=== PATIENT | male | born 1940 | race Caucasian/White ===

== ENCOUNTER 2024-04-29 17:06 | Inpatient (IN) | payer MEDICARE ==
[~2024-04-29] VITALS: Ht 180.3 cm; Wt 83.4 kg
[2024-04-29 17:42] LABS: BASOPHILS # (AUTO) 0.1 X10'3 (0-0.2); BASOPHILS % (AUTO) 1.4 % (0-1); EOSINOPHILS # (AUTO) 0.7 X10'3 (0-0.9); EOSINOPHILS % (AUTO) 8.9 % (0-6); HEMATOCRIT 45.3 % (42.0-52.0); HEMOGLOBIN 15.2 g/dl (14.0-17.9); LYMPHOCYTES # (AUTO) 2.7 X10'3 (1.1-4.8); LYMPHOCYTES % (AUTO) 32.3 % (21-51); MEAN CORPUSCULAR HEMOGLOBIN 31.3 PG (27.0-31.0); MEAN CORPUSCULAR HGB CONC 33.5 g/dL (33.0-36.5); MEAN CORPUSCULAR VOLUME 93.4 FL (78-98); MONOCYTES # (AUTO) 1.1 X10'3 (0-0.9); MONOCYTES % (AUTO) 13.8 % (2-12); NEUTROPHILS # (AUTO) 3.6 X10'3 (1.8-7.7); NEUTROPHILS % (AUTO) 43.6 % (42-75); PLATELET COUNT 240 X10'3 (140-440); RED BLOOD COUNT 4.85 X10'6 (4.70-6.10); RED CELL DISTRIBUTION WIDTH 15.1 % (11.5-14.5); WHITE BLOOD COUNT 8.3 X10'3 (4.5-11.0)
[2024-04-29 18:18] LABS: ALANINE AMINOTRANSFERASE 19 U/L (12-78); ALBUMIN 3.6 G/DL (3.4-5.0); ALBUMIN/GLOBULIN RATIO 0.8 (1.1-1.5); ALKALINE PHOSPHATASE 64 IU/L (46-116); ANION GAP 6 (8-16); ASPARTATE AMINO TRANSFERASE 15 U/L (10-37); BILIRUBIN,TOTAL 0.5 MG/DL (0.1-1.0); BLOOD UREA NITROGEN 17 MG/DL (7-18); BUN/CREATININE RATIO 18.9 (10.0-20.0); CALCIUM 8.9 MG/DL (8.5-10.1); CHLORIDE 101 MMOL/L (99-107); GLUCOSE 119 MG/DL (70-104); POTASSIUM 4.3 MMOL/L (3.5-5.1); SODIUM 136 MMOL/L (135-145); TOTAL CARBON DIOXIDE 29.1 MMOL/L (24-32); TOTAL PROTEIN 7.9 G/DL (6.4-8.2); eCRCL 66 ML/MIN; eGFR 81 ML/MIN
[2024-04-29 18:25] LABS: PRO BRAIN NATRIURETIC PEPTIDE 333 PG/ML (0-450)
[2024-04-29] MEDS: normal saline 1000ml 1,000 ML IV ONE (19:20)
[2024-04-29 20:04] LABS: BILIRUBIN,URINE NEGATIVE (Neg); CLARITY,URINE CLEAR (Clear); COLOR,URINE YELLOW (Yellow); GLUCOSE, URINE NEGATIVE (Neg); KETONES,URINE NEGATIVE (Neg); LEUKOCYTE ESTERASE ,URINE NEGATIVE (Neg); NITRITES, URINE NEGATIVE (Neg); OCCULT BLOOD,URINE TRACE-INTACT (Neg); PROTEIN,URINE 30 mg/dl (Neg); UROBILINOGEN,URINE 0.2 E.U/dL (0.2-1.0)
[2024-04-29 20:23] LABS: UA COLLECTION TYPE VOIDED
[2024-04-29 20:26] LABS: BACTERIA,URINE FEW /HPF (Neg); MUCUS STRANDS MODERATE /LPF (Neg); RBC,URINE NONE SEEN /HPF (0-2); SQUAMOUS EPITHELIAL CELL,UR FEW /LPF (FEW); WBC,URINE 0-4 /HPF (0-4)
[2024-04-29] MEDS ORDERED: ondansetron/PF 4mg/2ml inj IV PRN (22:30)
[2024-04-29] MEDS ORDERED: potassium Cl 20 mEq SR tablet PO PRN ×2 (22:30)
[2024-04-29] MEDS ORDERED: acetaminophen 325mg tablet PO PRN (22:30)
[2024-04-29] MEDS ORDERED: magnesium sulf-water 4G/100mL 100 ML IV PRN (22:30)
[2024-04-29] MEDS ORDERED: magnesium sulf-water 2g/50mL 50 ML IV PRN (22:30)
[2024-04-29] MEDS ORDERED: potassium Cl 40MEQ/1/2NS 520ml 520 ML IV PRN (22:30)
[2024-04-29] MEDS ORDERED: magnesium Cl slow-release 64mg tablet PO PRN (22:30)
[2024-04-30] VITALS (9 sets, daily range): BP systolic 116–151; BP diastolic 53–86; PULSE 66–83; RESP 12–19; TEMP 98–98.7; O2SAT 96–99
[2024-04-30] MEDS ORDERED: NO HOME MEDS (00:20)
[2024-04-30 03:09] LABS: EOSINOPHILS # (AUTO) 0.6 X10'3 (0-0.9); HEMOGLOBIN 13.9 g/dl (14.0-17.9); NEUTROPHILS # (AUTO) 3.9 X10'3 (1.8-7.7)
[2024-04-30 03:12] LABS: BASOPHILS # (AUTO) 0.1 X10'3 (0-0.2); BASOPHILS % (AUTO) 1.3 % (0-1); EOSINOPHILS % (AUTO) 7.7 % (0-6); HEMATOCRIT 41.8 % (42.0-52.0); LYMPHOCYTES # (AUTO) 2.3 X10'3 (1.1-4.8); LYMPHOCYTES % (AUTO) 28.8 % (21-51); MEAN CORPUSCULAR HGB CONC 33.2 g/dL (33.0-36.5); MEAN CORPUSCULAR VOLUME 93.5 FL (78-98); MEAN PLATELET VOLUME 9.1 FL (7.4-10.4); MONOCYTES # (AUTO) 0.9 X10'3 (0-0.9); MONOCYTES % (AUTO) 11.9 % (2-12); NEUTROPHILS % (AUTO) 50.3 % (42-75); PLATELET COUNT 228 X10'3 (140-440); RED BLOOD COUNT 4.47 X10'6 (4.70-6.10); RED CELL DISTRIBUTION WIDTH 14.8 % (11.5-14.5); WHITE BLOOD COUNT 7.8 X10'3 (4.5-11.0)
[2024-04-30 03:32] LABS: ALBUMIN 3.2 G/DL (3.4-5.0); BLOOD UREA NITROGEN 15 MG/DL (7-18); BUN/CREATININE RATIO 17.2 (10.0-20.0); CALCIUM 8.5 MG/DL (8.5-10.1); CREATININE 0.87 MG/DL (0.60-1.10); GLUCOSE 116 MG/DL (70-104); SODIUM 137 MMOL/L (135-145); TOTAL CARBON DIOXIDE 24.9 MMOL/L (24-32); eCRCL 69 ML/MIN; eGFR 84 ML/MIN
[2024-04-30 03:33] LABS: ANION GAP 8 (8-16); CHLORIDE 104 MMOL/L (99-107)
[2024-04-30] MEDS: K and/or MAG REPLACEMENT MC SCH (10:31)
[2024-04-30] MEDS: enoxaparin 30mg/0.3ml syringe SUBCUT ONE (14:03)
[2024-04-30] MEDS: tamsulosin 0.4mg capsule PO SCH (20:31)
[2024-05-01 05:07] LABS: BASOPHILS # (AUTO) 0.2 X10'3 (0-0.2); EOSINOPHILS # (AUTO) 0.7 X10'3 (0-0.9); LYMPHOCYTES % (AUTO) 43.4 % (21-51); MONOCYTES # (AUTO) 0.9 X10'3 (0-0.9); NEUTROPHILS # (AUTO) 2.7 X10'3 (1.8-7.7)
[2024-05-01 05:11] LABS: EOSINOPHILS % (AUTO) 8.6 % (0-6); HEMATOCRIT 41.4 % (42.0-52.0); HEMOGLOBIN 13.9 g/dl (14.0-17.9); LYMPHOCYTES # (AUTO) 3.4 X10'3 (1.1-4.8); MEAN CORPUSCULAR HEMOGLOBIN 31.3 PG (27.0-31.0); MEAN CORPUSCULAR HGB CONC 33.5 g/dL (33.0-36.5); MEAN CORPUSCULAR VOLUME 93.6 FL (78-98); MEAN PLATELET VOLUME 9.8 FL (7.4-10.4); MONOCYTES % (AUTO) 10.8 % (2-12); NEUTROPHILS % (AUTO) 34.2 % (42-75); PLATELET COUNT 218 X10'3 (140-440); RED BLOOD COUNT 4.43 X10'6 (4.70-6.10); RED CELL DISTRIBUTION WIDTH 14.4 % (11.5-14.5); WHITE BLOOD COUNT 7.9 X10'3 (4.5-11.0)
[2024-05-01 05:34] LABS: ALBUMIN 3.1 G/DL (3.4-5.0); ANION GAP 6 (8-16); BLOOD UREA NITROGEN 16 MG/DL (7-18); BUN/CREATININE RATIO 17.8 (10.0-20.0); CALCIUM 8.6 MG/DL (8.5-10.1); CHLORIDE 103 MMOL/L (99-107); GLUCOSE 105 MG/DL (70-104); POTASSIUM 4.3 MMOL/L (3.5-5.1); SODIUM 137 MMOL/L (135-145); TOTAL CARBON DIOXIDE 28.3 MMOL/L (24-32); eCRCL 66 ML/MIN; eGFR 81 ML/MIN
[2024-05-01 06:00] VITALS: BP 132/79; PULSE 73; RESP 12; TEMP 98.2; O2SAT 98
[2024-05-01] MEDS: normal saline 500ml IV soln 500 ML IV ONE (08:05)
[2024-05-01] MEDS: normal saline 1000ml 1,000 ML IV SCH (08:05)
[2024-05-01 10:00] VITALS: BP 138/74; PULSE 74; RESP 16; TEMP 98.2; O2SAT 98
[2024-05-01] MEDS ORDERED: FLO0.4C PO ×2 (11:19→11:21)
== END 2024-05-01 14:15 | disposition home or self-care (01) | DRG 884 ==
LOC: ER 17:07 → ED HOLD 22:33 → ORTHO 4S 04-30 13:25
PROVIDERS: ADMIT Internal Medicine; ATTEND Internal Medicine
DX: R54 Age-related physical debility (principal); R27.0 Ataxia, unspecified; R33.9 Retention of urine, unspecified; I10 Essential (primary) hypertension; M17.0 Bilateral primary osteoarthritis of knee; Z86.73 Personal history of transient ischemic attack (TIA), and cerebral infarction without residual deficits
CPT/HCPCS: 36415; 70450; 71045; 80048; 80053; 81001; 83880; 84484; 85025; 87081; 93005; 96360; 97116; 97161; 97530; 99285; A4314; A4340; A4358; C1758; G0378; J1650; J7030; J7040